=== PATIENT | female | born 1995 | race Caucasian/White ===

== ENCOUNTER → 2016-09-26 | Outpatient (CLI) | payer OTHER, MEDICAID | LOC: FIMAGING 07:56 | PROVIDERS: ATTEND Midwife | DX: O99.332 Smoking (tobacco) complicating pregnancy, second trimester (principal); O35.8XX0 Maternal care for other (suspected) fetal abnormality and damage, not applicable or unspecified; Z3A.20 20 weeks gestation of pregnancy ==

== ENCOUNTER → 2016-10-31 | Outpatient (CLI) | payer OTHER, MEDICAID | LOC: FIMAGING 08:25 | PROVIDERS: ATTEND Midwife | DX: O36.8920 Maternal care for other specified fetal problems, second trimester, not applicable or unspecified (principal); O99.332 Smoking (tobacco) complicating pregnancy, second trimester; F17.200 Nicotine dependence, unspecified, uncomplicated; Z3A.25 25 weeks gestation of pregnancy ==

== ENCOUNTER 2016-11-28 22:30 | Observation (INO) | payer OTHER, MEDICAID | END 2016-11-29 00:33 | disposition home or self-care (01) | LOC: FLD 22:30 | PROVIDERS: ADMIT Obstetrics & Gynecology; ATTEND Obstetrics & Gynecology | DX: O36.8120 Decreased fetal movements, second trimester, not applicable or unspecified (principal); O24.419 Gestational diabetes mellitus in pregnancy, unspecified control; O35.8XX0 Maternal care for other (suspected) fetal abnormality and damage, not applicable or unspecified; Z3A.29 29 weeks gestation of pregnancy | CPT/HCPCS: G0378 ×2 ==

== ENCOUNTER → 2016-12-18 | Outpatient (CLI) | payer OTHER, MEDICAID | LOC: FIMAGING 09:35 | PROVIDERS: ATTEND Midwife | DX: O35.8XX1 Maternal care for other (suspected) fetal abnormality and damage, fetus 1 (principal); O99.333 Smoking (tobacco) complicating pregnancy, third trimester; F17.200 Nicotine dependence, unspecified, uncomplicated; Z3A.32 32 weeks gestation of pregnancy ==